=== PATIENT | female | born 1960 | race Caucasian/White ===

== ENCOUNTER → 2020-12-25 | Outpatient (CLI) | payer OTHER ==
--- NOTE | 2020-12-25 16:01 | CARDNUC ---
[place] [address] CARDIAC NUCLEAR IMAGING REPORT Name: TRACI REEVES Room: [facility]#: [id number] Admission: 12/25/20 Attend Phys: Tello Smith, Discharge: Date of : 58 Date of Service: 12/25/20 1600 Report #: [id number] THIS REPORT FOR: cc: Ana Woodard MD, Sarah Beth MD [place], Michael J. MD [facility] ~ APPROVED REPORT Imaging Protocol: Rest Tc-99m/Stress Tc-99m 1 day Study performed: 12/25/2020 11:12:50 Indication: Chest pain, Palpitations Patient Location: Out-Patient Stress Tech: Joan Zuniga Stress Nurse: Jennifer Cobb RN NM Tech:DEEPAK Fu Ht: 5 ft 7 in Wt: 142 lbs BSA: 1.75 m2 BMI: 22.23 Medical History Medical History: HTN, Hyperlipidemia, Hep C, Palpitations, Chronic Leukopenia, ABD CT Calcium Score Medications: Mag Ox, Atorvastatin Allergies: Doxycycline Cardiac Risk Factors: Age, FHX of CAD, HTN, Hyperlipidemia, abnormal CT Calcium score Previous Cardiac Procedures: None Pretest Chest Pain Characteristics: No chest pain Exercise History: Physically active Physical Disabilities: None Meds Held (24 hrs): None Meds Held (48 hrs): None Resting Data Rest SPECT myocardial perfusion imaging was performed in supine position 30 minutes following the intravenous injection of 10.5 mCi of Tc-99m Sestamibi. Time of rest injection: 1000 Date: 12/25/2020 The images were gated to evaluate regional wall motion and calculate left ventricular ejection fraction. Administration Route: IV Administration Site: [place] [address] CARDIAC NUCLEAR IMAGING REPORT Name: LEANDROTRACI Room: [facility]#: [id number] Admission: 12/25/20 Attend Phys: Tello Smith, Discharge: Date of : 58 Date of Service: 12/25/20 1600 Report #: [id number] Exercise Stress At peak stress, the patient was injected intravenously with 30.3mCi of Tc-99m Sestamibi. Time of stress injection: 1130 Date: 12/25/2020 Administration Route: IV Administration Site: Right Gated Stress SPECT was performed 30 minutes after stress injection. The images were gated to evaluate regional wall motion and calculate left ventricular ejection fraction. Prone imaging was performed. Stress Test Details Stress Test: Exercise stress testing was performed using a Myron protocol. HR Max Heart Rate (APMHR): 159 bpm Resting HR: 60 bpm Target HR (85% APMHR): 135 bpm Max HR Achieved: 174 bpm % of APMHR: 109 Recovery HR: 101 bpm BP Resting BP: 154/82 mmHg Max BP: 187/85 mmHg Recovery BP: 134/89 mmHg ECG Resting ECG: Sinus Rhythm Stress ECG: Sinus Tachycardia ST Change: None Arrhythmia: None Recovery ECG: Sinus Rhythm Recovery ST Change: None Recovery Arrhythmia: None Clinical Reason for Termination: Completed protocol Stress Symptoms: Dyspnea Exercise duration: 10 min 09 sec Exercise capacity: 12.03 METs Overall Exercise Capacity for Age: Superior Patient tolerated Risperdal exercise without significant cardiac symptoms. Patient exhibited good exercise tolerance. Nurse Comments [place] [address] CARDIAC NUCLEAR IMAGING REPORT Name: GEOVANNY REEVESA Room: [facility]#: [id number] Admission: 12/25/20 Attend Phys: Tello Smith, Discharge: Date of : 58 Date of Service: 12/25/20 [facility] Report #: [id number] Stress ECG Conclusion The baseline twelve-lead EKG shows sinus rhythm without significant ST segment or T wave abnormality. EKGs obtained during and post exercise show sinus rhythm and sinus tachycardia with no significant ST segment or T wave changes when compared to baseline. There were no stress-induced arrhythmias. Study Quality Study: Good Artifact: No artifact Study Data At rest, the left ventricular ejection fraction was 76%.. Post stress, the left ventricular ejection was 77%.. TID = 0.80. Perfusion Perfusion images obtained at rest and post exercise stress showed uniform uptake of the radioisotope throughout the myocardium. There were no defects to suggest infarct or ischemia. Wall Motion Normal left ventricular wall motion. Nuclear Conclusion ECG Findings: negative for ischemia Clinical Findings: negative for ischemia Nuclear Findings: negative for ischemia Exercise Capacity: normal Left Ventricular Function: normal Risk Study: low Perfusion images show no defect to suggest infarct or ischemia. Left ventricular systolic function appears normal on gated studies. This is a low risk study. <Conclusion> The baseline twelve-lead EKG shows sinus rhythm without significant ST segment or T wave abnormality. EKGs obtained during and post exercise show sinus rhythm and sinus tachycardia with no significant ST segment or T wave changes when compared to baseline. There were no stress-induced arrhythmias. <ELECTRONICALLY SIGNED> By: Tello Smith MD, FACC 12/25/201599 99 99 Tello Smith MD, FACC /INF
== END ==
LOC: M.NUC 11-09 16:15 → M.CRD 11-29 11:58 → M.NUC 08:00 → M.CRD 09:00 → M.NUC 09:33
PROVIDERS: ATTEND Internal Medicine Cardiovascular Disease
DX: I25.10 Atherosclerotic heart disease of native coronary artery without angina pectoris (principal)